=== PATIENT | male | born 2000 | race Two or more races ===

== ENCOUNTER 2023-06-04 03:55 | Inpatient (IN) | payer OTHER ==
[~2023-06-04] VITALS: Ht 175.3 cm; Wt 94.0 kg
[2023-06-04] MEDS ORDERED: AMLO-258 PO (04:02)
[2023-06-04] MEDS ORDERED: OLAN5TAB52 PO (04:02)
[2023-06-04 04:31] LABS: BASOPHILS % (AUTO) 0.5 % (0.0-2.0); EOSINOPHILS % (AUTO) 1.3 % (1.0-6.0); HEMOGLOBIN 15.1 g/dL (13.5-17.5); LYMPHOCYTES # (AUTO) 3.9 K/uL (1.0-4.8); LYMPHOCYTES % (AUTO) 39.7 % (22.0-44.0); MEAN CORPUSCULAR HEMOGLOBIN 28.4 pg (26.0-34.0); MEAN CORPUSCULAR HGB CONC 33.6 G/dL (31.0-37.0); MEAN CORPUSCULAR VOLUME 84 fL (80-100); MONOCYTES # (AUTO) 0.6 K/uL (0.1-1.0); NEUTROPHILS # (AUTO) 5.1 K/uL (1.8-7.7); NEUTROPHILS % (AUTO) 52.5 % (40.0-70.0); PLATELET COUNT (AUTO) 278 K/uL (150-450); RED BLOOD CELL COUNT(AUTO) 5.33 MIL/uL (4.50-5.90); RED CELL DISTRIBUTION WIDTH 15.3 % (11.5-14.5); WHITE BLOOD COUNT (AUTO) 9.7 K/uL (4.5-11.0)
[2023-06-04 04:34] LABS: COVID AG,FIA SOURCE NASAL SWAB
[2023-06-04 04:37] LABS: ANION GAP 6 mmol/L (8-16); CALCIUM, TOTAL 9.5 mg/dL (8.8-10.5); CARBON DIOXIDE 34 mmol/L (22-29); CHLORIDE 99 mmol/L (98-107); CREATININE 0.81 mg/dL (0.60-1.30); GLOMERULAR FILTR. RATE CALC > 60 mL/min (>60); GLUCOSE,RANDOM 85 mg/dL (70-110); POTASSIUM 4.8 mmol/L (3.5-5.1); SODIUM SERUM 139 mmol/L (136-145); UREA NITROGEN, BLOOD 12 mg/dL (7-18)
[2023-06-04 04:42] LABS: ALCOHOL, BLOOD (SERUM) < 3 mg/dL (0-10)
[2023-06-04 04:43] LABS: ALANINE AMINOTRANSFERASE 21 U/L (12-78); ALBUMIN 3.8 g/dL (3.4-5.0); ALKALINE PHOSPHATASE 56 U/L (46-116); ASPARTATE AMINOTRANSFERASE 16 U/L (15-37); BILIRUBIN,TOTAL 0.6 mg/dL (0.1-1.0)
[2023-06-04 04:51] LABS: SARS-COV2 (COVID) ANTIGEN,FIA Negative (Negative)
[2023-06-04] MEDS ORDERED: ZOLPIDEM TARTRATE 5 MG TABLET PO PRN (06:15)
[2023-06-04] MEDS ORDERED: ACETAMINOPHEN 325 MG TABLET PO PRN (06:15)
[2023-06-04] MEDS ORDERED: MAGNESIUM HYDROXIDE SUSPENSION 30 ML UDCUP PO PRN (06:15)
[2023-06-04 07:15] LABS: APPEARANCE,URINE CLEAR (CLEAR); BILIRUBIN,URINE NEGATIVE (NEGATIVE); COLOR,URINE LIGHT YELLOW (YELLOW); GLUCOSE, URINE (UA) NEGATIVE (NEGATIVE); KETONES,URINE NEGATIVE (NEGATIVE); LEUKOCYTE ESTERASE ,URINE NEGATIVE (NEGATIVE); NITRATE,URINE NEGATIVE (NEGATIVE); OCCULT BLOOD,URINE NEGATIVE (NEGATIVE); PH,URINE 6.5 (5.0-8.0); PROTEIN,URINE NEGATIVE (NEGATIVE); SPECIFIC GRAVITIY, URINE 1.012 (1.003-1.030); UROBILINOGEN,URINE <=1.0 mg/dL (<=1.0)
[2023-06-04 07:16] LABS: PH,URINE DRUG SCREEN 6.5 (5.0-8.0)
[2023-06-04 07:23] LABS: ALCOHOL, URINE DRUG SCREEN NEGATIVE (NEGATIVE); AMPHET/METH SCREEN,URINE NEGATIVE (NEGATIVE); BARBITURATE SCREEN, URINE NEGATIVE (NEGATIVE); BENZODIAZEPINES SCREEN,URINE NEGATIVE (NEGATIVE); CANNABINOID SCREEN,URINE NEGATIVE (NEGATIVE); COCAINE SCREEN,URINE NEGATIVE (NEGATIVE); METHADONE SCREEN, URINE NEGATIVE (NEGATIVE); OPIATE SCREEN,URINE NEGATIVE (NEGATIVE); PHENCYCLIDINE SCREEN,URINE NEGATIVE (NEGATIVE)
[2023-06-04 10:37] VITALS: BP 121/74; PULSE 60; RESP 18; TEMP 98.3; O2SAT 96
[2023-06-04 19:59] VITALS: BP 118/69; PULSE 72; RESP 18; TEMP 97.8; O2SAT 98
[2023-06-05 04:33] VITALS: BP 119/57; PULSE 66; RESP 18; TEMP 97.8; O2SAT 100
[2023-06-05 08:46] VITALS: BP 119/74; PULSE 60; RESP 18; TEMP 97.6; O2SAT 100
[2023-06-05] MEDS ORDERED: ACETA PO (10:09)
[2023-06-05] MEDS ORDERED: MAGN-169 PO (10:09)
[2023-06-09] MEDS ORDERED: ACET-2247 PO (13:49)
== END 2023-06-05 20:05 | DRG 885 ==
LOC: EMS 03:57 → AHU 08:40 → 6S 09:09
PROVIDERS: ADMIT Internal Medicine; ATTEND Internal Medicine
DX: F33.1 Major depressive disorder, recurrent, moderate (principal); R45.851 Suicidal ideations; E66.9 Obesity, unspecified; Z20.822 Contact with and (suspected) exposure to COVID-19; F41.9 Anxiety disorder, unspecified; F15.90 Other stimulant use, unspecified, uncomplicated; Z88.0 Allergy status to penicillin; Z79.899 Other long term (current) drug therapy; Z68.30 Body mass index [BMI] 30.0-30.9, adult
CPT/HCPCS: 80053; 80307; 81003; 85025; 99285; G0480

== ENCOUNTER 2023-06-21 18:27 | Inpatient (IN) | payer OTHER ==
[~2023-06-21] VITALS: Ht 175.3 cm; Wt 92.7 kg
[~2023-06-21 18:27] MED LIST: ACET-2247 PO; AMLO-258 PO; MAGN-169 PO; OLAN5TAB52 PO
[2023-06-21 19:08] LABS: BASOPHILS % (AUTO) 0.7 % (0.0-2.0); EOSINOPHILS % (AUTO) 0.9 % (1.0-6.0); HEMATOCRIT 45.9 % (41-53); HEMOGLOBIN 15.5 g/dL (13.5-17.5); LYMPHOCYTES # (AUTO) 3.3 K/uL (1.0-4.8); LYMPHOCYTES % (AUTO) 33.5 % (22.0-44.0); MEAN CORPUSCULAR HEMOGLOBIN 28.6 pg (26.0-34.0); MEAN CORPUSCULAR HGB CONC 33.8 G/dL (31.0-37.0); MEAN CORPUSCULAR VOLUME 85 fL (80-100); MONOCYTES # (AUTO) 0.4 K/uL (0.1-1.0); MONOCYTES % (AUTO) 4.4 % (2.0-9.0); NEUTROPHILS # (AUTO) 5.9 K/uL (1.8-7.7); NEUTROPHILS % (AUTO) 60.5 % (40.0-70.0); PLATELET COUNT (AUTO) 262 K/uL (150-450); RED BLOOD CELL COUNT(AUTO) 5.42 MIL/uL (4.50-5.90); RED CELL DISTRIBUTION WIDTH 15.3 % (11.5-14.5); WHITE BLOOD COUNT (AUTO) 9.7 K/uL (4.5-11.0)
[2023-06-21 19:22] LABS: ANION GAP 8 mmol/L (8-16); CALCIUM, TOTAL 9.6 mg/dL (8.8-10.5); CARBON DIOXIDE 30 mmol/L (22-29); CHLORIDE 101 mmol/L (98-107); CREATININE 0.88 mg/dL (0.60-1.30); GLOMERULAR FILTR. RATE CALC > 60 mL/min (>60); GLUCOSE,RANDOM 83 mg/dL (70-110); POTASSIUM 4.2 mmol/L (3.5-5.1); SODIUM SERUM 139 mmol/L (136-145); UREA NITROGEN, BLOOD 13 mg/dL (7-18)
[2023-06-21 19:28] LABS: ALANINE AMINOTRANSFERASE 22 U/L (12-78); ALBUMIN 3.8 g/dL (3.4-5.0); ALKALINE PHOSPHATASE 62 U/L (46-116); ASPARTATE AMINOTRANSFERASE 15 U/L (15-37); BILIRUBIN,TOTAL 0.3 mg/dL (0.1-1.0); TOTAL PROTEIN, SERUM 8.3 g/dL (6.4-8.2)
[2023-06-21 19:52] LABS: ALCOHOL, BLOOD (SERUM) < 3 mg/dL (0-10)
[2023-06-21 19:54] LABS: COVID AG,FIA SOURCE NPH
[2023-06-21 20:20] LABS: SARS-COV2 (COVID) ANTIGEN,FIA Negative (Negative)
[2023-06-21 22:05] VITALS: BP 110/68; PULSE 60; RESP 18; TEMP 97.9
[2023-06-21] MEDS ORDERED: ACETAMINOPHEN 325 MG TABLET PO PRN (23:00)
[2023-06-21] MEDS ORDERED: ZOLPIDEM TARTRATE 5 MG TABLET PO PRN (23:00)
[2023-06-21] MEDS ORDERED: IPRATROPIUM BROMIDE 0.5 MG/2.5 ML NEB SOLUTION NEB PRN (23:00)
[2023-06-21] MEDS ORDERED: ONDANSETRON HCL 4 MG/2 ML VIAL IVP PRN (23:00)
[2023-06-21] MEDS ORDERED: MAGNESIUM HYDROXIDE SUSPENSION 30 ML UDCUP PO PRN (23:00)
[2023-06-21] MEDS ORDERED: BISACODYL 10 MG RECTAL RECTAL SUPPOSITORY PR PRN (23:00)
[2023-06-21] MEDS ORDERED: ALBUTEROL SULFATE 2.5 MG/0.5 ML NEB SOLUTION NEB PRN (23:00)
[2023-06-21 23:10] LABS: APPEARANCE,URINE CLEAR (CLEAR); BILIRUBIN,URINE NEGATIVE (NEGATIVE); COLOR,URINE LIGHT YELLOW (YELLOW); GLUCOSE, URINE (UA) NEGATIVE (NEGATIVE); KETONES,URINE NEGATIVE (NEGATIVE); LEUKOCYTE ESTERASE ,URINE NEGATIVE (NEGATIVE); NITRATE,URINE NEGATIVE (NEGATIVE); OCCULT BLOOD,URINE NEGATIVE (NEGATIVE); PH,URINE 6.5 (5.0-8.0); PH,URINE DRUG SCREEN 6.5 (5.0-8.0); PROTEIN,URINE NEGATIVE (NEGATIVE); SPECIFIC GRAVITIY, URINE 1.022 (1.003-1.030); UROBILINOGEN,URINE <=1.0 mg/dL (<=1.0)
[2023-06-21 23:18] LABS: ALCOHOL, URINE DRUG SCREEN NEGATIVE (NEGATIVE); AMPHET/METH SCREEN,URINE NEGATIVE (NEGATIVE); BARBITURATE SCREEN, URINE NEGATIVE (NEGATIVE); BENZODIAZEPINES SCREEN,URINE NEGATIVE (NEGATIVE); CANNABINOID SCREEN,URINE NEGATIVE (NEGATIVE); COCAINE SCREEN,URINE NEGATIVE (NEGATIVE); METHADONE SCREEN, URINE NEGATIVE (NEGATIVE); OPIATE SCREEN,URINE NEGATIVE (NEGATIVE); PHENCYCLIDINE SCREEN,URINE NEGATIVE (NEGATIVE)
[2023-06-21] MEDS: HEPARIN SODIUM,PORCINE 5,000 UNITS/ML VIAL SQ SCH (23:51)
[2023-06-22 04:22] VITALS: BP 109/63; PULSE 58; RESP 18; TEMP 97.6
[2023-06-22 07:59] VITALS: BP 114/67; PULSE 67; RESP 18; TEMP 97.5
[2023-06-22] MEDS: PANTOPRAZOLE SODIUM 40 MG DR TABLET PO SCH (08:19)
[2023-06-22 17:01] VITALS: BP 118/69; PULSE 68; RESP 18; TEMP 97.8
[2023-06-22 20:13] VITALS: BP 109/68; PULSE 71; RESP 20; TEMP 98.1
[2023-06-22] MEDS: OLANZapine 5 MG TABLET PO SCH (20:14)
[2023-06-23 05:13] VITALS: BP 96/66; PULSE 62; RESP 18; TEMP 97.4
[2023-06-23 07:55] VITALS: BP 120/75; PULSE 66; RESP 18; TEMP 98
[2023-06-23 15:42] VITALS: BP 128/74; PULSE 67; RESP 18; TEMP 97.9
[2023-06-23 20:06] VITALS: BP 108/58; PULSE 75; RESP 18; TEMP 97.7
[2023-06-24 04:42] VITALS: BP 111/67; PULSE 52; RESP 18; TEMP 97.7
[2023-06-24 08:13] VITALS: BP 109/67; PULSE 0; RESP 18; TEMP 97.9
[2023-06-24] MEDS ORDERED: OLAN5TAB30 PO (14:02)
== END 2023-06-24 20:07 | DRG 885 ==
LOC: EMS 18:28 → 6S 21:16
PROVIDERS: ADMIT Hospitalist; ATTEND Hospitalist
DX: F25.1 Schizoaffective disorder, depressive type (principal); R45.851 Suicidal ideations; Z20.822 Contact with and (suspected) exposure to COVID-19; Z88.0 Allergy status to penicillin; I10 Essential (primary) hypertension; F32.9 Major depressive disorder, single episode, unspecified
CPT/HCPCS: 80053; 80307; 81003; 85025; 99285; G0480; J1644